=== PATIENT | female | born 2000 | race Caucasian/White ===

== ENCOUNTER 2025-01-26 12:50 | Emergency (ER) | payer SELFPAY ==
[2025-01-26 12:50] VITALS: BP 101/78; PULSE 89; RESP 14; TEMP 37.2; O2SAT 98; BMI 24.2
--- NOTE | 2025-01-26 13:50 | ED.VIS.FEGU ---
HPI HPI - Female History of Present Illness Chief Complaint: Vag Bleeding Narrative Narrative: 24-year-old female presents with abnormal vaginal bleeding that she has had over the last week. She relays history that she usually has menses regularly at the beginning of the month and last 4 to 5 days. She states that she had her normal menses at the beginning of the month which lasted 4 to 5 days, stopped for a day, and since then she has been bleeding continuously for the last week. She is also having pelvic cramping on both sides. She denies any other bleeding diathesis. Of note, she is unsure if she was or if she may be having a miscarriage because she has not done a home test. Over the course of the last 1 to 2 months, she states that she has taken Plan B 5 times. The last dose was more than 2 weeks ago and before her regular menses. She presents because she states she feels somewhat lightheaded and is having vaginal bleeding continually. It was similar to her previous menses if not slightly heavier, and seems to be lightening up, but is still having continued bleeding/abnormal bleeding PFSH PFSH Allergy/AdvReac Type Severity Reaction Status Date / Time amoxicillin Allergy HIVES Verified 01/26/25 12:51 Social History Smoking Status: Never smoker ROS ROS ED ROS Narrative Review of systems positive for vaginal bleeding and lightheadedness as well as bilateral pelvic cramping. Denies other symptoms or other bleeding diathesis. EXAM Physical Exam Narrative Exam Narrative: Afebrile. Vital signs noted. Nontoxic-appearing. Cardiovascular examination reveals regular rate and rhythm. Lungs are clear to auscultation bilaterally. Abdomen soft and nontender without guarding or rebound. Positive bowel sounds. Neurological examination nonfocal, nonlateralizing. No pallor of skin or central cyanosis. Const Vital Signs: 01/26/25 12:50 01/26/25 14:50 Temperature 98.9 F Temperature Source Temporal Pulse Rate 89 76 Respiratory Rate 14 16 Blood Pressure 101/78 118/78 Blood Pressure Mean 85 91 Pulse Ox 98 98 Oxygen Delivery Method Room Air Room Air MDM MDM MDM Narrative Medical decision making narrative: Differential diagnosis includes but not limited to ectopic versus abnormal/dysfunctional uterine bleeding/abnormal menses. Patient has deferred/declined pelvic examination currently. I will start with screening labs including CBC, CMP, and serum . Urinalysis was also sent. Ultrasound will be performed as well. It is dependent on whether or not she is , and if she would require ultrasound and/or quantitative beta-hCG. I reviewed her laboratory work and she had a normal white count at 10.5 with hemoglobin normal at 13.3, hematocrit 41.9, platelet count slightly elevated at 466 which I think is nonspecific. I do not feel she needs a blood transfusion. CMP is grossly unremarkable with normal LFTs and normal electrolytes and normal kidney function/creatinine of 0.72. Serum is negative. I do not think that her vaginal bleeding is from a miscarriage urinalysis is negative for infection. She is O+. Once again, patient declined pelvic examination. Additionally I ordered transvaginal ultrasound to see if she had abnormal vaginal bleeding from a uterine fibroid, but she declined this as well. She was told the limitations of not evaluating with a ultrasound as the cause of her irregular vaginal bleeding, but she still declined and prefers to follow-up as an outpatient with an [employer]NAGER. She was referred to [employer] MANAGER on-call. I find this reasonable. I feel she can be discharged safely home with follow-up. Return instructions to the emergency department were reviewed. Disposition is discharged home in stable condition. History & Record Review Discussion w/independent historian: Patient Additional record(s) reviewed:: No prior records (No prior ED visits) Lab Data Attestation: I reviewed the patient's lab results. Labs: Laboratory Results - last 24 hr 01/26/25 01/26/25 01/26/25 13:35 13:43 14:02 WBC 10.5 RBC 4.63 Hgb 13.9 Hct 41.9 MCV 90.5 MCH 30.0 MCHC 33.2 RDW Std Deviation 45.4 H RDW Coeff of Radha 13.7 Plt Count 466 H MPV 9.8 Immature Gran % (Auto) 0.300 Neut % (Auto) 59.8 Lymph % (Auto) 29.4 [place] % (Auto) 9.2 Eos % (Auto) 0.7 Baso % (Auto) 0.6 Absolute Neuts (auto) 6.3 Absolute Lymphs (auto) 3.08 Nucleated RBC % 0 Sodium 140 Potassium 4.4 Chloride 103 Carbon Dioxide 27.2 Anion Gap 10 BUN 19 Creatinine 0.72 Estim Creat Clear Calc 114.73 Est GFR (MDRD) Non-Af 121 BUN/Creatinine Ratio 26.5 H Glucose 72 Calcium 9.8 Total Bilirubin 0.27 AST 22 ALT 17 Alkaline Phosphatase 61 Total Protein 7.7 Albumin 4.4 Globulin 3.3 Albumin/Globulin Ratio 1.3 Serum , Qual NEGATIVE Urine Color Yellow Urine Clarity Clear Urine pH 6.0 Ur Specific [place] 1.025 Urine Protein 30 H Urine Glucose (UA) Normal Urine Ketones Negative Urine Occult Blood 50 H Urine Nitrite Negative Urine Bilirubin Negative Urine Urobilinogen Normal Ur Leukocyte Esterase Negative Urine RBC 0-5 SEEN Urine WBC 0-5 SEEN Ur Squamous Epith Cells 0-5 SEEN Urine Bacteria 0 SEEN Urine Mucus 0 SEEN Blood Type O POSITIVE Discharge Plan Triage Chief Complaint: Vag Bleeding ED Provider: Chuy Humphreys Dx/Rx/DC Orders Clinical Impression: Vaginal bleeding, abnormal, Pelvic cramping Instructions: Understanding Uterine Bleeding, ED Dysfunctional Uterine Bleeding, ED MENSTRUAL CRAMPING Primary Care Provider: Sandy Briones Referrals: Yoli Camacho MD [Med Staff - Active Staff, Obstetrics-Gynecology (OBGYN)] - As soon as possible Sanyd Briones PA [Primary Care Provider, Family Practice] Activity Restrictions/Additional Instructions: Follow-up with an [employer] MANAGER as soon as possible. Return to the emergency department with increased vaginal bleeding, fever, increased pain, new or worsening symptoms. Print Language: Icelandic Disposition Disposition: Home, Self Care
[2025-01-26 14:00] LABS: Hematocrit 41.9 % (37-47); Hemoglobin 13.9 g/dL (12.0-15.0); Immature Granulocytes Count 0.030 X10^3/uL (0.0-0.0); Mean Corp Hgb Conc 33.2 g/dL (32-36); Mean Corpuscular Volume 90.5 fL (81-99); Mean Platelet Vol. 9.8 fl (6.2-12.0); NRBC Flagged by Analyzer 0 % (0-5); Platelet Count 466 K/mm3 (150-450); RBC Distribution Width CV 13.7 % (11.6-14.6); RBC Distribution Width SD 45.4 fl (35.1-43.9); Red Blood Count 4.63 M/mm3 (4.2-5.4); White Blood Count 10.5 K/mm3 (4.4-11.0)
[2025-01-26 14:10] LABS: Mucous, Urine 0 SEEN /hpf (<or=2+)
[2025-01-26 14:13] LABS: Color, Urine Yellow (Yellow); Glucose, Dipstick Normal (Normal); Ketone-Dipstick Negative (Negative); Leukocyte Esterase-Dipstick Negative /ul (Negative); Nitrite-Dipstick Negative (Negative); Occult Blood-Urine 50 /ul (Negative); Protein-Dipstick 30 mg/dl (Negative); Specific Gravity, Urine 1.025 (1.002-1.030); Urine Bilirubin Dipstick Negative (Negative)
[2025-01-26 14:31] LABS: Internal QC Validated? YES +Cl - CLEAR BKGD; Pregnancy, Serum, hCG Quali. NEGATIVE Negative; Record Kit Lot#, Serum Preg. 964736
[2025-01-26 14:50] VITALS: BP 118/78; PULSE 76; RESP 16; O2SAT 98
[2025-01-26 14:52] LABS: Red Blood Cells-Urine 0-5 SEEN /hpf (0-5); Squamous Epithelial Cells - UA 0-5 SEEN /hpf (5-10)
[2025-01-26 14:55] LABS: AST(SGOT) 22 U/L (<=31); Alanine Aminotransfer ALT/SGPT 17 U/L (<=34); Albumin, Serum 4.4 g/dL (3.5-5.0); Alkaline Phosphatase 61 U/L (35-104); Anion Gap 10 (5-15); BUN 19 mg/dL (4-19); BUN/Creat Ratio 26.5 RATIO (10-20); Calcium,Total 9.8 mg/dL (7.6-11.0); Carbon Dioxide 27.2 mmol/L (21.0-32.0); Chloride 103 mmol/L (98-108); Estimated Creatinine Clearance 114.73 ml/min (50-250); Globulin 3.3 g/dL (2.2-4.2); Glucose 72 mg/dL (70-99); Potassium 4.4 mmol/L (3.3-5.1)
[2025-01-26] MEDS: 0.9% Normal Saline (1000mL) 1,000 ML 999 ML IV (14:55)
[2025-01-26 15:37] VITALS: BP 118/78; PULSE 76; RESP 16; TEMP 37.2; O2SAT 98
== END 2025-01-26 15:37 | disposition home or self-care (01) ==
PROVIDERS: Emergency Provider Emergency Medicine; Visit Provider Emergency Medicine
DX: N93.9 Abnormal uterine and vaginal bleeding, unspecified (principal); R10.2 Pelvic and perineal pain
CPT/HCPCS: 80053; 81001; 84703; 85025; 86900; 86901; 96360; 99283; A4216